=== PATIENT | male | born 1960 | race Caucasian/White ===

== ENCOUNTER 2022-07-17 12:59 | Emergency (ER) | payer OTHER ==
[~2022-07-17] VITALS: Ht 175.3 cm; Wt 86.2 kg
[2022-07-17] MEDS ORDERED: ATROPINE SULFATE 1 MG/10 ML DISP.SYRIN IV ONE ×2 (13:05)
--- NOTE | 2022-07-17 13:06 | NUR ---
JOLENE RA78 From Home "My throat really hurts been going on x2wks but worse yesterday- can't swallow-feels swollen" Speech hoarse. PLACED IN BED, AAOX4, UNLABORED BREATHING SATURATING AT 97%RA
[2022-07-17] MEDS ORDERED: DEXAMETHASONE SOD PHOSPHATE 10 MG/ML VIAL ONE (13:22)
--- NOTE | 2022-07-17 13:25 | NUR ---
BLOOD DRAWN AND SENT TO LAB
--- NOTE | 2022-07-17 13:27 | NUR ---
MOVE SHEET SUBMITTED.
[2022-07-17] MEDS ORDERED: DEXAMETHASONE SOD PHOSPHATE 10 MG/ML VIAL IV ONE (13:30)
[2022-07-17] MEDS ORDERED: IV NS 0.9% 1,000 ML BAG IV ONE ×3 (13:30→15:00)
--- NOTE | 2022-07-17 13:36 | NUR ---
SWAB FOR COVID19 SENT TO LAB
[2022-07-17] MEDS ORDERED: CT SWABBABLE VALVE TRANS SET 1 EA INFUS.SET MC ONE (13:44)
[2022-07-17] MEDS ORDERED: IOHEXOL-300 100 ML VIAL IV ONE (13:44)
[2022-07-17] MEDS ORDERED: IV NS 0.9% 250 ML IV ONE (13:44)
[2022-07-17 13:46] LABS: BASOPHILS # (AUTO) 0.2 K/uL (0.0-0.2); BASOPHILS % (AUTO) 0.7 % (0.0-2.0); EOSINOPHILS % (AUTO) 5.8 % (0.0-6.0); HEMATOCRIT 40 % (39-51); HEMOGLOBIN 12.5 g/dL (13.5-17.5); LYMPHOCYTES # (AUTO) 1.4 K/uL (0.8-4.8); LYMPHOCYTES % (AUTO) 6.2 % (20.0-44.0); MEAN CORPUSCULAR HGB CONC 32 g/dl (31.0-36.0); MEAN CORPUSCULAR VOLUME 91 fL (80-96); MONOCYTES # (AUTO) 0.4 K/uL (0.1-1.30); MONOCYTES % (AUTO) 1.5 % (2.0-12.0); NEUTROPHILS # (AUTO) 19.8 K/uL (1.8-8.9); NEUTROPHILS % (AUTO) 85.8 % (43.0-81.0); PLATELET COUNT (AUTO) 348 K/uL (150-450); RED BLOOD CELL COUNT(AUTO) 4.36 MIL/uL (4.5-6.0); WHITE BLOOD COUNT (AUTO) 23.1 K/uL (4.3-11.0)
[2022-07-17] MEDS ORDERED: diphenhydrAMINE HCL 50 MG/ML VIAL ONE (14:03)
[2022-07-17 14:11] LABS: CALCIUM, SERUM 9.9 mg/dL (8.5-10.1); CARBON DIOXIDE 26 mmol/L (21-32); CHLORIDE 106 mmol/L (98-107); CREATININE 0.8 mg/dL (0.6-1.3); GLUCOSE 107 mg/dL (74-106); POTASSIUM 3.6 mmol/L (3.5-5.1); SODIUM SERUM 143 mmol/L (136-145); UREA NITROGEN, BLOOD 9 mg/dL (7-18)
[2022-07-17 14:16] LABS: ALANINE AMINOTRANSFERASE 25 U/L (12-78); ALBUMIN 3.2 g/dL (3.4-5.0); ASPARTATE AMINOTRANSFERASE 54 U/L (15-37); BILIRUBIN,DIRECT 0.4 mg/dL (0.0-0.2); BILIRUBIN,TOTAL 0.9 mg/dL (0.2-1.0); TOTAL PROTEIN, SERUM 8.8 g/dL (6.4-8.2)
[2022-07-17] MEDS ORDERED: PIPERACILLIN /TAZOBACTAM 3.375 G VIAL IV ONE (14:21)
[2022-07-17] MEDS ORDERED: METH25VI11 SQ (14:25)
[2022-07-17] MEDS ORDERED: HYDR200T4 PO (14:25)
[2022-07-17] MEDS ORDERED: APRE30TA2 PO (14:25)
[2022-07-17] MEDS ORDERED: PIPERACILLIN /TAZOBACTAM 3.375 G in IV D5W 50 ML IV ONE (14:30)
--- NOTE | 2022-07-17 14:33 | NUR ---
CALLED [facility] [phone] FOR HIGHER LEVEL OF CARE. TERRANCE HENDERSON REQUESTING CLINICALS FAXED TO [phone].
--- NOTE | 2022-07-17 14:44 | NUR ---
[place] [facility] [phone] [place] ASKED FOR FACESHEET TO BE FAXED TO [phone]
[2022-07-17 14:45] LABS: BILIRUBIN,URINE NEGATIVE (NEGATIVE); COLOR,URINE YELLOW (YELLOW); LEUKOCYTE ESTERASE ,URINE NEGATIVE (NEGATIVE); NITRITE, URINE NEGATIVE (NEGATIVE); PROTEIN,URINE NEGATIVE (NEGATIVE); UGLUCOSE NEGATIVE (NEGATIVE)
[2022-07-17 15:34] LABS: BACTERIA,URINE None seen /HPF (None Seen); RBC,URINE 0-2 /HPF (0-2); SQUAMOUS EPITHELIAL CELL,UR 0-2 /HPF (None Seen); URINE AMORPHOUS PHOSPHATES Few /HPF (None Seen); WBC,URINE 0-2 /HPF (0-3)
--- NOTE | 2022-07-17 16:31 | NUR ---
JIM FROM [facility]. DR. STU DE OLIVEIRA SPEAKING WITH DR. LAUREN.
--- NOTE | 2022-07-17 16:41 | NUR ---
PATIENT ACCEPTED AT [facility] UNDER DR MALIK NUMBER FOR REPORT [phone] SO TO ARRANGED TRANSPORT.
--- NOTE | 2022-07-17 16:52 | NUR ---
CALLED [facility] [phone] PER MAGNOLIA: PT ACCEPTED TO [facility] ER TO ER UNDER DR. ALVINO TEIXEIRA. ER ATTENDING IS DR. RYAN. CALL [phone] FOR REPORT. ALS TRANSPORT WITH [facility] ETA 2130 PER CRISTINA.
[2022-07-17] MEDS ORDERED: LORAZEPAM INJ 2 MG/ML VIAL ONE (17:03)
--- NOTE | 2022-07-17 17:05 | NUR ---
PATIENT DEVELOPED SHORTNESS OF BREATH DESATURATES DOWN TO 75% WITH 15LIT O2 VIA NRM- CRICOTHYROTOMY AND TRACH. TUBE INSITU DONE BY .
[2022-07-17 17:07] LABS: ALKALINE PHOSPHATASE 92 U/L (46-116)
--- NOTE | 2022-07-17 17:21 | NUR ---
PATIENT HAD CARDIAC ARREST- CARDIOPULMONARY RESUSCITATION COMMENCED WITH ATROPINE 1MG AND EPI. X2.
--- NOTE | 2022-07-17 17:30 | NUR ---
PATIENT REVIVED BP- 134/73, VT- 135, SATURATING AT 100 ON VENTILATOR WITH SETTING A/C PRVC FIO2- 100, VT- 500, RATE- 18, PEEP- 5
[2022-07-17] MEDS ORDERED: PROPOFOL 100 ML ONE ×2 (17:36→22:20)
[2022-07-17] MEDS ORDERED: LORAZEPAM INJ 2 MG/ML VIAL IV ONE (18:00)
[2022-07-17] MEDS ORDERED: PROPOFOL 100 ML IV PRN (18:00)
--- NOTE | 2022-07-17 18:10 | NUR ---
[facility] NO CCT AVAIALBLE.
--- NOTE | 2022-07-17 18:11 | NUR ---
RT Pt needed emergency tracheostomy due to unsuccessful intubation attempts by Leif Cedeno 6 cuffed trach secure and in place. Bilateral breath sounds- Ambu bag at bedside. Tolerating current vent settings. Will continue to monitor.
[2022-07-17] MEDS: NOREPINEPHRINE 8 MG in IV NS 0.9% 242 ML IV PRN (18:24)
--- NOTE | 2022-07-17 18:24 | NUR ---
COMMENCED ON LEVOPHED AT 0.1MCG/KG/MIN. BP- 79/45
[2022-07-17] MEDS ORDERED: TRANEXAMIC ACID 1,000 MG/10 ML VIAL ONE (18:46)
--- NOTE | 2022-07-17 18:49 | NUR ---
CALLED [phone] NO CCT TONIGHT, TRY TOMORROW PER LYDIA.
--- NOTE | 2022-07-17 18:53 | NUR ---
CALLED [facility] NO CCT TONIGHT.
[2022-07-17] MEDS ORDERED: SUCCINYLCHOLINE CHLORIDE 20 MG/ML VIAL IV ONE (18:54)
[2022-07-17] MEDS ORDERED: ETOMIDATE 2 MG/ML VIAL IV ONE (18:54)
[2022-07-17] MEDS ORDERED: EPINEPHRINE (1:10,000) SYRINGE 1 MG/10 ML DISP.SYRIN IVP ONE (18:55)
[2022-07-17] MEDS ORDERED: TRANEXAMIC ACID 1,000 MG/10 ML VIAL TOP ONE (19:00)
--- NOTE | 2022-07-17 19:01 | NUR ---
CALLED ALL [facility] [phone] POSSIBLE AVAILABILITY AT 4945 WILL CALL BACK.
--- NOTE | 2022-07-17 19:33 | NUR ---
MIDLINE NURSE AT PT'S BEDSIDE FOR INSERTION
[2022-07-17] MEDS ORDERED: FENTANYL PF 100MCG/2ML AMPUL ONE (20:27)
[2022-07-17] MEDS ORDERED: LIDOCAINE 1%-EPI 1:100,000 20 ML VIAL ONE (20:31)
[2022-07-17] MEDS ORDERED: FENTANYL PF 100MCG/2ML AMPUL IV ONE (21:30)
--- NOTE | 2022-07-17 21:38 | NUR ---
CALL FROM [facility]. PT ACCEPTED TO [facility] ER BY DR CARD, DR DE OLIVEIRA. # FOR REPORT [phone]. REF# [id number]
--- NOTE | 2022-07-17 22:12 | NUR ---
Sheldon montesinos in ED - 07/17/22 at 2213 by FLORIDALMA GLADYS [facility] CALL[facility] FOR [facility] TRANSPORT. PENDING ETA
--- NOTE | 2022-07-17 22:14 | NUR ---
[facility] FOR [facility] TRANSP[facility]. PENDING ETA. #[id number]
--- NOTE | 2022-07-17 22:50 | NUR ---
[facility] CALLED, NO BEDS AVAILABLE.
[2022-07-18] MEDS ORDERED: VANCOMYCIN 1 GM in IV D5W 250 ML IV ONE ×2
--- NOTE | 2022-07-18 00:03 | NUR ---
SPOKE TO ZAY FROM [facility], WAS TOLD THEY ARE BOOKED FOR THE NIGHT AND WILL CONTINUE TO SEARCH FOR TRANSPORTATION AT 0600 AM.
[2022-07-18] MEDS ORDERED: VANCOMYCIN 1 GM VIAL ONE (00:49)
--- NOTE | 2022-07-18 02:37 | NUR ---
[facility] CALLED FOR CCT TRANSPORT, NO UNITS AVAILABLE
--- NOTE | 2022-07-18 02:37 | NUR ---
LEVOPHED TRITRATION: LEVOPHED AT 0.05MCG/KG/MIN TO PAZ PICCLINE BP- 115/71 HR 83
--- NOTE | 2022-07-18 02:38 | NUR ---
[facility] CALLED FOR CCT TRANSPORT, NO UNITS AVAILABLE.
--- NOTE | 2022-07-18 02:39 | NUR ---
[facility] CALLED FOR CCT TRANSPORT, NO UNITS AVAILABLE.
--- NOTE | 2022-07-18 02:47 | NUR ---
[facility] CALLED FOR CCT, NO UNITS AVAILABLE.
[2022-07-18] MEDS: NOREPINEPHRINE 8 MG in IV NS 0.9% 242 ML IV PRN (02:48)
--- NOTE | 2022-07-18 02:52 | NUR ---
[facility] CALLED FOR CCT TRANSPORT, NO UNITS AVAILABLE.
[2022-07-18] MEDS ORDERED: PROPOFOL 100 ML ONE ×2 (03:05→07:47)
[2022-07-18 03:32] LABS: BASOPHILS % (AUTO) 0.1 % (0.0-2.0); HEMATOCRIT 35 % (39-51); HEMOGLOBIN 11.2 g/dL (13.5-17.5); LYMPHOCYTES # (AUTO) 1.1 K/uL (0.8-4.8); LYMPHOCYTES % (AUTO) 2.7 % (20.0-44.0); MEAN CORPUSCULAR HGB CONC 32 g/dl (31.0-36.0); MEAN CORPUSCULAR VOLUME 90 fL (80-96); MONOCYTES # (AUTO) 0.7 K/uL (0.1-1.30); MONOCYTES % (AUTO) 1.7 % (2.0-12.0); NEUTROPHILS # (AUTO) 41.1 K/uL (1.8-8.9); NEUTROPHILS % (AUTO) 95.5 % (43.0-81.0); PLATELET COUNT (AUTO) 319 K/uL (150-450); RED BLOOD CELL COUNT(AUTO) 3.89 MIL/uL (4.5-6.0)
--- NOTE | 2022-07-18 04:23 | NUR ---
Note jaguar in EDM - 07/18/22 at 0557 by SRINIVASA PROPOFOL TRITRATION: 40MCG/KG/MIN TO LAC #18G S/L TOLERATING WELL; PT SEDATED. VSS
[2022-07-18 04:24] LABS: ALBUMIN 2.5 g/dL (3.4-5.0); BILIRUBIN,TOTAL 0.8 mg/dL (0.2-1.0); CALCIUM, SERUM 8.7 mg/dL (8.5-10.1); CREATININE 0.8 mg/dL (0.6-1.3); POTASSIUM 3.6 mmol/L (3.5-5.1); TOTAL PROTEIN, SERUM 7.6 g/dL (6.4-8.2)
[2022-07-18] MEDS ORDERED: PIPERACILLIN /TAZOBACTAM 2.25 G in IV D5W 50 ML IV SCH ×2 (04:30→06:00)
[2022-07-18] MEDS ORDERED: PIPERACILLIN /TAZOBACTAM 3.375 G VIAL IV ONE (04:33)
[2022-07-18] MEDS: PIPERACILLIN /TAZOBACTAM 3.375 G in IV D5W 50 ML IV SCH ×2 (04:39→06:00)
[2022-07-18 05:00] LABS: BAND % (MANUAL) 6 % (0.0-5.0); BASOPHILS % (MANUAL) 0 % (0.0-2.0); EOSINOPHILS % (MANUAL) 0 % (0-4); LYMPHOCYTES % (MANUAL) 3 % (16-48); MONOCYTES % (MANUAL) 2 % (0-11.0); NEUTROPHILS % (MANUAL) 89 (42-76)
[2022-07-18] MEDS ORDERED: IV NS 0.9% 1,000 ML IV STA (05:02)
[2022-07-18] MEDS ORDERED: VANCOMYCIN 1 GM in IV D5W 250 ML IV SCH ×2 (06:00→13:00)
--- NOTE | 2022-07-18 06:19 | NUR ---
URINE OUTPUT 1300ML VIA F/C
--- NOTE | 2022-07-18 06:57 | NUR ---
PT Shiley 6 cuffed trach secure and in place. Vent settings: Fio2 40%, VT 500, RR 18, PEEP 5; satting at 100%. Propofol 50mcg/kg/min to PAZ PICCline; sedated. Levophed 0.05mcg/kg.5 drip to PAZ PICCLINE. RAC #18g s/l. NS 100ML/HR;LAC #20g S/L. F/C 16 FR intact and draining urine. Safety measures in place.
--- NOTE | 2022-07-18 07:12 | NUR ---
UPDATED PRIYA (ELLIE) FROM [facility] THAT TRANSPORTATION IS PENDING [phone]
--- NOTE | 2022-07-18 07:27 | NUR ---
[facility] CALLED FOR CCT TRANSPORT, NO UNITS AVAILABLE
--- NOTE | 2022-07-18 07:33 | NUR ---
CALLED [facility] AND SET UP TRANSPORT WITH RT BEV CALL OTHER AMBULANCE FOR CCT AND FASTER ETA ETA 1000
--- NOTE | 2022-07-18 07:37 | NUR ---
CALLED [facility] FOR CCT WAS NOTIFIED THAT THERE WAS NONE AVAILABLE
--- NOTE | 2022-07-18 07:43 | NUR ---
CALLED [facility] AND WAS NOTIFIED THAT THEY DO NOT TAKE THE INSURANCE OF THE PT
--- NOTE | 2022-07-18 07:52 | NUR ---
CALLED [facility] AND WAS ABLE TO SET UP ALS TRANSPORT ETA 1031
--- NOTE | 2022-07-18 08:06 | NUR ---
CALLED [facility] AND RECIEVED NO ANSWER
--- NOTE | 2022-07-18 08:48 | NUR ---
SPOKE TO CHEIKH, DAUGHTER, AND GAVE HER AN UPDATE ON HER FATHERS CONDITION
--- NOTE | 2022-07-18 08:50 | NUR ---
VIRI, [phone] EHSAN, DAUGHTER [phone]
--- NOTE | 2022-07-18 10:44 | NUR ---
[facility] CALLED, NEW ETA 1119
[2022-07-18] MEDS ORDERED: PROPOFOL 200 ML ONE (10:58)
--- NOTE | 2022-07-18 11:37 | NUR ---
CALLED [facility] AND WAS NOTIFIED THAT THE CREW IS 10 MIN AWAY
--- NOTE | 2022-07-18 11:39 | NUR ---
PT IN BED 6, TRACH'ED BREATHING ON VENT, BREATHING EVEN, NO S/S OF RESP DISTRESS, PT SUCTIONED BLOOD TINGED SECREATIONS NOTED. VITAL SIGNS ARE STABLE ON THE MONITOR. SINUS R, 100/62 HR 60 RR 18. SOME TWITCHING NOTICED DURING ASSESSMENT PROPOFOL RUNNINNG AT 50MCG MAX, LEVO RUNNING AT 0.05 MCG/KG/MIN. PICCLINE INPLACE FLUSH WITH EASE NO S/S/ OF INFILTRATION. 18G RAC, 20G LAC PATENT AND FLUSHING NO S/S OF INFILTRATION. TAMEZ CATHETER IN PLACE DRAINING YELLOW URINE 500ML AT 11:30. BOWEL SOUNDS ABSENT IN ALL 4 QUADRENTS. BED LOCKED IN LOWEST POSTION, SIDE RAILS UP, IN LOW FOWLERS.
--- NOTE | 2022-07-18 12:05 | NUR ---
PROPOFOL DRIP CONTINUED INFUSING DURING PT TRANSFER.
--- NOTE | 2022-07-18 12:06 | NUR ---
[facility] AT BEDSIDE.
[2022-07-18 12:26] VITALS: BP 108/77
== END 2022-07-18 12:29 | disposition short-term general hospital (02) ==
LOC: ER 13:04
DX: A41.9 Sepsis, unspecified organism (principal); R65.20 Severe sepsis without septic shock; J36 Peritonsillar abscess; R13.10 Dysphagia, unspecified; R06.02 Shortness of breath; I10 Essential (primary) hypertension; K21.9 Gastro-esophageal reflux disease without esophagitis; Z20.822 Contact with and (suspected) exposure to COVID-19; Z79.899 Other long term (current) drug therapy
CPT/HCPCS: 36569; 31605; 99291; 92950; 31500; 99152; 82803; 87040 ×3; 70491; 84145; 85025 ×2; 80048; 87086; 83605 ×2; 80076; 81001; 36415 ×2; 84484; 85730; 87426; 96365; 96361; 96375; 93005; 71045 ×3; 36600; 80053; 94799; 94003; 96366; 96367; 96368; 85007; 31720; J2060; J0461 ×2; J1100; J0171; J3010; J0330; J2543 ×3; J7050 ×2; J3490 ×7; A6403; Q9967; C9803; J3370; J7060; J7030; A4223 ×5; G0500; J1200